=== PATIENT | male | born 1995 | race Caucasian/White ===

== ENCOUNTER 2018-04-06 11:54 | Emergency (ER) | payer OTHER ==
[~2018-04-06] VITALS: Ht 180.3 cm; Wt 175.0 kg
[2018-04-06] MEDS ORDERED: IV NORMAL SALINE 1,000ML 1,000 ML IV ONE (12:15)
[2018-04-06 12:31] LABS: BASO % 1 % (0-3); EOS # 0.1 x10^3/uL (0.0-0.7); EOS % 1 % (0-3); HEMATOCRIT 44.3 % (39.0-53.0); HEMOGLOBIN 15.3 g/dL (13.0-17.5); LYMPH # 1.4 x10^3/uL (1.0-4.8); LYMPH % 23 % (24-48); MEAN CORPUSCULAR HEMOGLOBIN 29 pg (25-35); MEAN CORPUSCULAR HGB CONC 35 g/dL (31-37); MEAN CORPUSCULAR VOLUME 85 fL (79-100); MONO # 0.5 x10^3/uL (0.0-1.1); MONO % 9 % (0-9); NEUT # 4.2 x10^3uL (1.8-7.7); NEUT % 67 % (31-73); PLATELET COUNT 210 x10^3/uL (140-400); RED BLOOD COUNT 5.25 x10^6/uL (4.30-5.70); RED CELL DISTRIBUTION WIDTH 12.5 % (11.5-14.5); WHITE BLOOD COUNT 6.2 x10^3/uL (4.0-11.0)
--- NOTE | 2018-04-06 12:36 | PHYS DOC ---
Adult General Chief Complaint Chief Complaint: HEAT EXPOSURE HPI HPI 22-year-old male presents with headache and right arm tingling. 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 Had the headache for several minutes, he started to have some nausea and right arm tingling. He did not vomit. The patient has been working outside the last couple of days for at least a few hours each day. He has been eating and drinking normally. On arrival to the ED, the patient still had some mild nausea but the arm tingling had resolved. His headache is the same pain he describes it as moderate. He has no history of migraines or other chronic headaches. He denies fever or chills. Review of Systems Review of Systems Constitutional: Denies fever or chills [] Eyes: Denies change in visual acuity, redness, or eye pain [] HENT: Denies nasal congestion or sore throat [] Respiratory: Denies cough or shortness of breath [] Cardiovascular: No additional information not addressed in HPI [] GI: nausea[] : Denies dysuria or hematuria [] Musculoskeletal: Denies back pain or joint pain [] Integument: Denies rash or skin lesions [] Neurologic: frontal headache [] Endocrine: Denies polyuria or polydipsia [] All other systems were reviewed and found to be within normal limits, except as documented in this note. Current Medications Current Medications Current Medications Medications (Trade) Dose Ordered Sig/Krzysztof Start Time Stop Time Status Last Admin Dose Admin Diphenhydramine HCl (Benadryl) 25 mg 1X ONCE 04/06/18 12:15 04/06/18 12:16 UNV Ketorolac Tromethamine (Toradol) 30 mg 1X ONCE 04/06/18 12:15 04/06/18 12:16 UNV Metoclopramide HCl (Reglan Vial) 10 mg 1X ONCE 04/06/18 12:15 04/06/18 12:16 UNV Sodium Chloride 1,000 ml @ 1,000 mls/hr 1X ONCE 04/06/18 12:15 04/06/18 13:14 UNV 04/06/18 12:26 1,000 MLS/HR Allergies Allergies Allergies Coded Allergies Type Severity Reaction Last Updated Verified lidocaine Allergy Unknown Rash 04/06/18 Yes Physical Exam Physical Exam Constitutional: Well developed, well nourished, no acute distress, non-toxic appearance. [] HENT: Normocephalic, atraumatic, bilateral external ears normal, oropharynx moist, no oral exudates, nose normal. [] Eyes: PERRLA, EOMI, conjunctiva normal, no discharge. [] Neck: Normal range of motion, no tenderness, supple, no stridor. [] Cardiovascular:Heart rate regular rhythm, no murmur [] Lungs & Thorax: Bilateral breath sounds clear to auscultation [] Abdomen: Bowel sounds normal, soft, no tenderness, no masses, no pulsatile masses. [] Skin: Warm, dry, no erythema, no rash. moreno skin from sun exposure[] Back: No tenderness, no CVA tenderness. [] Extremities: No tenderness, no cyanosis, no clubbing, ROM intact, no edema. [] Neurologic: Alert and oriented X 3, normal motor function, normal sensory function, no focal deficits noted. [] Psychologic: Affect normal, judgement normal, mood normal. [] EKG EKG [] Radiology/Procedures Radiology/Procedures [] Course & Med Decision Making Course & Med Decision Making Pertinent Labs and Imaging studies reviewed. (See chart for details) His labs are unremarkable. The patient was given 1 L normal saline, 10 milligrams Reglan, 30 mg of Toradol , and 25 mg of Benadryl IV for his headache. He was feeling much better afterwards. He has no further complaints. He feels as though he can be discharged at this time. [] Dragon Disclaimer Dragon Disclaimer This electronic medical record was generated, in whole or in part, using a voice recognition dictation system. Departure Departure: Referrals: PCP,NO (PCP) FELISHA CASE DO April 06, 2018 12:36
[2018-04-06] MEDS ORDERED: diphenhydrAMINE 50 MG/ML VIAL IVP ONE (12:45)
[2018-04-06] MEDS ORDERED: METOCLOPRAMIDE HCL 10 MG/2 ML VIAL. IV ONE (12:45)
[2018-04-06] MEDS ORDERED: KETOROLAC 30 MG/ML VIAL. IV ONE (12:45)
[2018-04-06 12:49] LABS: CALCIUM 8.6 mg/dL (8.5-10.1); CREATININE 1.1 mg/dL (0.7-1.3); GFR 82.2; POTASSIUM 3.7 mmol/L (3.5-5.1)
[2018-04-06 13:05] VITALS: BP 126/54
== END 2018-04-06 13:21 | disposition home or self-care (01) ==
LOC: ER 11:54
DX: R51 Headache (principal); R20.2 Paresthesia of skin; R11.0 Nausea; Z88.4 Allergy status to anesthetic agent
CPT/HCPCS: 36415; 80048; 85025; 96374; 96375; 99284; J1200; J1885; J2765; J7030